=== PATIENT | male | born 1940 | race Caucasian/White ===

== ENCOUNTER → 2017-01-26 | Day surgery (SDC) | payer MEDICARE, OTHER ==
[~2017-01-26] MED LIST: Lactated Ringers 1,000 ML IV SCH; Propofol 200 MG/20 ML SDV ONE; fentaNYL 100 MCG/2 ML SDV ONE
--- NOTE | 2017-01-26 08:08 | OR ---
PREOPERATIVE DIAGNOSIS: History of polyps. POSTOPERATIVE DIAGNOSIS: Sigmoid diverticulosis, otherwise normal exam. PROCEDURE PROPOSED/PROCEDURE DONE: Total flexible colonoscopy. INDICATION: This is a 76-year-old gentleman who has a history of polyps. His last examination was 6 years ago and he comes in for a followup exam. TECHNIQUE: The patient was brought to the endoscopy suite, placed in left lateral decubitus position. He was sedated per [facility] with propofol. The flexible video colonoscope was then passed transanally and advanced to the cecum without difficulty. Examination revealed normal ascending, transverse and descending colon. The sigmoid colon revealed some mild diverticulosis and the rectum was normal. There was no evidence of any polyps or colitis or other abnormalities. The scope was then withdrawn. The patient tolerated procedure well. FINAL IMPRESSION: 1. Sigmoid diverticulosis, otherwise normal exam. 2. History of prior polyps. PLAN: Based on his age, I do not feel he needs any future colonoscopies. SCM: 01/26/2017 07:55:33 MODL: 01/26/2017 08:04:07 /[id number]
--- NOTE | 2017-01-26 08:35 | CONS ---
DATE OF CONSULTATION: CHIEF COMPLAINT: Umbilical hernia. HISTORY OF PRESENT ILLNESS: This is a 76-year-old gentleman who had a laparoscopic cholecystectomy done in April of last year, and he was told at that time that he had an umbilical hernia and it was felt that they repaired it, but he states that it soon came back after his laparoscopic gallbladder surgery and the hernia is getting larger. It is not particularly bothersome to him, but he is concerned about it growing, and he does have to lift wheelchair and move his in a wheelchair on occasion, and he is feeling that it is going to be a problem because of that. 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 He has had a laparoscopic cholecystectomy surgery. He is otherwise quite healthy for his age. PHYSICAL EXAMINATION: GENERAL: Reveals a healthy-appearing gentleman. He just had a recent physical by Kaushik Frost, please refer to that for the complete physical. ABDOMEN: I examined him in the standing position. He does have a supraumbilical hernia that mushrooms out a fair amount of tissue, but it is all reducible and the actual fascial defect is only about 1.5 cm. No evidence of any inguinal hernias. EXTREMITIES: No pedal edema. IMPRESSION: 1. Reducible supraumbilical hernia, probable trocar site hernia. 2. Blood leukemia with diminished blood counts. PLAN: I feel that we should proceed to repair this under local anesthesia with IV sedation as an outpatient surgery, and he is already scheduled for this coming Wednesday. I feel that we cannot do it under local anesthesia without a general anesthetic. He was understanding of that. He had questions about his activity after surgery and I discussed that with him. I felt he could lift the wheelchair pretty much right away and he would be able to push his . So long as he does not lift anything heavier than that, I feel that he should be fine, and then that I would follow up with him in the clinic in about a month here in [place]. Thank you for the consultation. SCM: 01/26/2017 07:58:42 MODL: 01/26/2017 08:25:21 /[id number]
== END ==
LOC: VM.SDS 06:30
PROVIDERS: ATTEND Surgery
DX: Z12.11 Encounter for screening for malignant neoplasm of colon (principal); K57.30 Diverticulosis of large intestine without perforation or abscess without bleeding; Z86.010 Personal history of colon polyps; C95.90 Leukemia, unspecified not having achieved remission; Z98.890 Other specified postprocedural states; Z79.899 Other long term (current) drug therapy
CPT/HCPCS: G0105; J2704; J3010; J7120; 00810

== ENCOUNTER 2018-06-29 17:10 | Emergency (ER) | payer MEDICARE, OTHER ==
[2018-06-29] MEDS ORDERED: Sodium Chloride 0.9% 10 ML Syringe FLUSH PRN (17:23)
[2018-06-29] MEDS ORDERED: Sodium Chloride 0.9% 1,000 ML IV SCH (17:30)
[2018-06-29] MEDS ORDERED: Iopamidol 612 MG/ML 100 ML Bottle IVPUSH ONE (17:33)
[2018-06-29] MEDS ORDERED: cefTRIAXone 2 GM Vial IVPUSH ONE (17:36)
--- NOTE | 2018-06-29 17:40 | EDM.PDOC ---
ED HPI GENERAL MEDICAL PROBLEM - General Chief Complaint: Abdominal Pain Stated Complaint: abdominal pain and crampin Time Seen by Provider: 06/29/18 17:13 Source of Information: Reports: Patient, Old Records History Limitations: Reports: No Limitations - History of Present Illness INITIAL COMMENTS - FREE TEXT/NARRATIVE: Patient presents with upper right abdominal pain that he states has been intermittent over the last couple of weeks. Over this last weekend it did significantly increase that he was seen at the [facility] on Wednesday be Steph Ferris. Check up with his [place] doctor was then scheduled for earlier today in the AM. No abnormal findings were found at that time that would explain his abdominal pain. 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 He describes the pain as self resolving and cramp like. He did have a lap cholecystectomy in 2017. Appendix is still intact. He denies nausea, vomiting, diarrhea, blood in urine or stool. No chest pain, is short of breath, but does have an asthma history. No prior VT or CVA per his report. No med list, but will review [facility] chart. He is also complaining of chills. Febrile at 103.9F on presentation. Onset: Gradual Duration: Intermittent Location: Reports: Abdomen, Generalized Quality: Reports: Ache Severity: Moderate Associated Symptoms: Reports: Cough, Fever/Chills - Related Data Allergies Allergy/AdvReac Type Severity Reaction Status Date / Time amoxicillin AdvReac Headache Verified 06/29/18 18:03 rituximab [From Rituxan] AdvReac Body Aches Verified 06/29/18 18:03 Home Meds: Home Meds Calcium Carbonate/Vitamin D3 [Calcium 600 + Vit D 200] 1 each PO BID 01/22/17 [ History] Docusate Sodium [Colace] 100 mg PO BID 01/22/17 [History] Mometasone Furoate [Nasonex] 2 sprays NASBOTH DAILY 01/22/17 [History] Montelukast [Singulair] 10 mg PO BEDTIME 01/22/17 [History] Multivitamin with Minerals [Multiple Vitamin] 1 tab PO DAILY 01/22/17 [History] Propylene Glycol/Peg 400 [Systane 0.3-0.4% Eye Drops] 1 drop EYEBOTH Q4H PRN [History] Tamsulosin [Flomax] 0.4 mg PO BEDTIME 01/22/17 [History] Past Medical History HEENT History: Reports: Allergic Rhinitis, Impaired Vision, Retinal Detachment Cardiovascular History: Reports: High Cholesterol Respiratory History: Reports: Asthma, COPD, Pneumonia, Recurrent Gastrointestinal History: Reports: Colon Polyp, GI Bleed, Inflammatory Bowel Disease, Other (See Below) Genitourinary History: Reports: Prostate Disorder Neurological History: Reports: None Psychiatric History: Reports: None Hematologic History: Immunologic History: Reports: Immunosuppression Other Immunologic History: SPLENIC LYMPHOMA Oncologic (Cancer) History: Reports: Lymphoma, Other (See Below) Other Oncologic History: SPLEEN LYMPHOMA Dermatologic History: Reports: None - Past Surgical History HEENT Surgical History: Reports: Cataract Surgery Respiratory Surgical History: Reports: None GI Surgical History: Reports: Cholecystectomy, Colonoscopy, Other (See Below) Other GI Surgeries/Procedures: COMMON BILE DUCT OBSTRUCTION Musculoskeletal Surgical History: Reports: Joint Replacement Other Musculoskeletal Surgeries/Procedures:: LEFT KNEE ED ROS GENERAL - Review of Systems Review Of Systems: See Below Constitutional: Reports: Fever, Chills, Other (shaking) HEENT: Reports: No Symptoms Respiratory: Reports: Shortness of Breath, Cough Cardiovascular: Reports: No Symptoms Endocrine: Reports: No Symptoms GI/Abdominal: Reports: Abdominal Pain. Denies: Black Stool, Bloody Stool, Diarrhea, Nausea, Vomiting : Reports: No Symptoms. Denies: Hematuria Musculoskeletal: Reports: No Symptoms Skin: Reports: No Symptoms Neurological: Reports: No Symptoms Psychiatric: Reports: No Symptoms Hematologic/Lymphatic: Reports: No Symptoms Immunologic: Reports: No Symptoms ED EXAM, GENERAL - Physical Exam Exam: See Below Exam Limited By: No Limitations General Appearance: Alert, WD/WN, Mild Distress Eye Exam: Bilateral Eye: EOMI, Normal Inspection, PERRL Ears: Normal TMs Nose: Normal Inspection, Normal Mucosa, No Blood Throat/Mouth: Normal Inspection, Normal Lips, Normal Teeth, Normal Gums, Normal Oropharynx, Normal Voice, No Airway Compromise Head: Atraumatic, Normocephalic Neck: Normal Inspection, Supple, Non-Tender, Full Range of Motion Respiratory/Chest: No Respiratory Distress, Lungs Clear, Normal Breath Sounds, No Accessory Muscle Use, Chest Non-Tender Cardiovascular: Normal Peripheral Pulses, Regular Rate, Rhythm, No Edema, No Gallop, No JVD, No Murmur, No Rub Peripheral Pulses: 2+: Posterior Tibial (L), Posterior Tibial (R), Dorsalis Pedis (L), Dorsalis Pedis (R) GI/Abdominal: Normal Bowel Sounds, Soft, No Organomegaly, No Distention, No Abnormal Bruit, No Mass, Tender (right upper quad) Back Exam: Normal Inspection, Full Range of Motion, NT Extremities: Normal Inspection, Normal Range of Motion, Non-Tender, Normal Capillary Refill, No Pedal Edema Neurological: Alert, Oriented, CN II-XII Intact, Normal Cognition, Normal Gait, Normal Reflexes, No Motor/Sensory Deficits Psychiatric: Normal Affect, Normal Mood Skin Exam: Warm, Dry, Intact, Normal Color, No Rash Lymphatic: No Adenopathy EKG INTERPRETATION EKG Date: 06/29/18 Time: 17:42 Rhythm: NSR Rate (Beats/Min): 95 [place]: Normal P-Wave: Present QRS: Normal ST-T: Normal QT: Normal Course - Orders/Labs/Meds Orders: Active Orders 24 hr Category Date Time Status EKG Documentation Completion [RC] STAT Care 06/29/18 17:23 Ordered Abdomen Pelvis w Cont [CT] Stat Exams 06/29/18 17:23 Ordered CBC WITH AUTO DIFF [HEME] Stat Lab 06/29/18 17:23 Ordered COMPREHENSIVE METABOLIC PN,CMP [CHEM] Stat Lab 06/29/18 17:23 Ordered CREATINE KINASE,CK [CHEM] Stat Lab 06/29/18 17:23 Ordered CULTURE BLOOD [BC] Stat Lab 06/29/18 17:24 Ordered CULTURE BLOOD [BC] Stat Lab 06/29/18 17:24 Ordered CULTURE URINE [RM] Stat Lab 06/29/18 17:23 Ordered INFLUENZA A+B AG SCREEN [RM] Stat Lab 06/29/18 17:23 Ordered LACTIC ACID [CHEM] Stat Lab 06/29/18 17:23 Ordered MAGNESIUM [CHEM] Stat Lab 06/29/18 17:23 Ordered PHOSPHORUS [CHEM] Stat Lab 06/29/18 17:23 Ordered PRO B-TYPE NATRIUR PEPT,BNPPRO [CHEM] Stat Lab 06/29/18 17:24 Ordered TROPONIN I [CHEM] Stat Lab 06/29/18 17:23 Ordered UA W/MICROSCOPIC [URIN] Stat Lab 06/29/18 17:23 Ordered Sodium Chloride 0.9% [Normal Saline] 1,000 ml Med 06/29/18 17:30 Ordered IV ASDIRECTED Sodium Chloride 0.9% [Saline Flush] Med 06/29/18 17:23 Ordered 10 ml FLUSH ASDIRECTED PRN Blood Culture x2 Reflex Set [OM.PC] Stat Oth 06/29/18 17:23 Ordered Saline Lock Insert [OM.PC] Routine Oth 06/29/18 17:23 Ordered Medication Orders Sodium Chloride (Normal Saline) 1,000 mls @ 999 mls/hr IV ASDIRECTED STEVEN Sodium Chloride (Saline Flush) 10 ml FLUSH ASDIRECTED PRN PRN Reason: Keep Vein Open Meds: Medications Generic Name Dose Route Start Last Admin Trade Name Freq PRN Reason Stop Dose Admin Sodium Chloride 1,000 mls @ 999 mls/hr 06/29/18 17:30 Normal Saline IV ASDIRECTED STEVEN Sodium Chloride 10 ml 06/29/18 17:23 Saline Flush FLUSH ASDIRECTED PRN Keep Vein Open - Radiology Interpretation Free Text/Narrative:: CT chest abdomen pelvis performed. CT negative for acute processes - Re-Assessments/Exams Free Text/Narrative Re-Assessment/Exam: 06/29/18 19:55 After exam and review of diagnostics, patient said he forgot to tell me that he has an abscessed tooth to upper left side. I did not see any enlargement on my evaluation. Will prescribe Clindamycin. States he has a dental appointment next week for a root canal. Departure - Departure Time of Disposition: 19:56 Disposition: Home, Self-Care 01 Condition: Good Clinical Impression: Gastroenteritis, Tooth abscess - Discharge Information *PRESCRIPTION DRUG MONITORING PROGRAM REVIEWED*: Not Applicable *COPY OF PRESCRIPTION DRUG MONITORING REPORT IN PATIENT ALEXANDER: Not Applicable Instructions: Dental Abscess, [id number], Viral Gastroenteritis, Adult, Easy- to-Read, Clindamycin capsules, Probiotics Forms: ED Department Discharge Additional Instructions: Plan 1. Stay well hydrated 2. Take the flexeril every 8 hours for any muscle cramps you may experience in the abdomen 3. Your chest/abdomen/pelvis CT was negative for any acute causes for abdominal pain 4. Take 300 mg of Clindamycin every 8 hours for 7 days 5. Eat 1-2 yogurts daily for the next month to help prevent a gut infection caused by the use of antibiotics, you may also try probiotics 6. Follow up as needed in [place] or with your PCP here in [place]. If your abdominal cramping does not improve, contact your primary to look at getting a referral to see gastroenterology(GI) 7. Please call us if you have any questions or concerns related to this visit 8. I did send the images of your CT scans to the [facility] radiology system so they should be available for them to review - Problem List & Annotations (1) Gastroenteritis SNOMED Code(s): 16463934 Code(s): K52.9 - NONINFECTIVE GASTROENTERITIS AND COLITIS, UNSPECIFIED Status: Acute Priority: Low Current Visit: Yes (2) Tooth abscess SNOMED Code(s): 829986301 Code(s): K04.7 - PERIAPICAL ABSCESS WITHOUT SINUS Status: Acute Priority : Medium Current Visit: Yes - Problem List Review Problem List Initiated/Reviewed/Updated: Yes - My Orders Last 24 Hours: My Active Orders 06/29/18 17:23 EKG Documentation Completion [RC] STAT Abdomen Pelvis w Cont [CT] Stat CBC WITH AUTO DIFF [HEME] Stat COMPREHENSIVE METABOLIC PN,CMP [CHEM] Stat CREATINE KINASE,CK [CHEM] Stat CULTURE URINE [RM] Stat INFLUENZA A+B AG SCREEN [RM] Stat LACTIC ACID [CHEM] Stat MAGNESIUM [CHEM] Stat PHOSPHORUS [CHEM] Stat TROPONIN I [CHEM] Stat UA W/MICROSCOPIC [URIN] Stat Sodium Chloride 0.9% [Saline Flush] 10 ml FLUSH ASDIRECTED PRN Blood Culture x2 Reflex Set [OM.PC] Stat Saline Lock Insert [OM.PC] Routine 06/29/18 17:24 CULTURE BLOOD [BC] Stat CULTURE BLOOD [BC] Stat PRO B-TYPE NATRIUR PEPT,BNPPRO [CHEM] Stat 06/29/18 17:30 Sodium Chloride 0.9% [Normal Saline] 1,000 ml IV ASDIRECTED - Assessment/Plan Last 24 Hours: My Active Orders 06/29/18 17:23 EKG Documentation Completion [RC] STAT Abdomen Pelvis w Cont [CT] Stat CBC WITH AUTO DIFF [HEME] Stat COMPREHENSIVE METABOLIC PN,CMP [CHEM] Stat CREATINE KINASE,CK [CHEM] Stat CULTURE URINE [RM] Stat INFLUENZA A+B AG SCREEN [RM] Stat LACTIC ACID [CHEM] Stat MAGNESIUM [CHEM] Stat PHOSPHORUS [CHEM] Stat TROPONIN I [CHEM] Stat UA W/MICROSCOPIC [URIN] Stat Sodium Chloride 0.9% [Saline Flush] 10 ml FLUSH ASDIRECTED PRN Blood Culture x2 Reflex Set [OM.PC] Stat Saline Lock Insert [OM.PC] Routine 06/29/18 17:24 CULTURE BLOOD [BC] Stat CULTURE BLOOD [BC] Stat PRO B-TYPE NATRIUR PEPT,BNPPRO [CHEM] Stat 06/29/18 17:30 Sodium Chloride 0.9% [Normal Saline] 1,000 ml IV ASDIRECTED Assessment:: tooth abscess viral gastroenteritis Plan: Plan 1. Stay well hydrated 2. Take the flexeril every 8 hours for any muscle cramps you may experience in the abdomen 3. Your chest/abdomen/pelvis CT was negative for any acute causes for abdominal pain 4. Take 300 mg of Clindamycin every 8 hours for 7 days 5. Eat 1-2 yogurts daily for the next month to help prevent a gut infection caused by the use of antibiotics, you may also try probiotics 6. Follow up as needed in [place] or with your PCP here in [place]. If your abdominal cramping does not improve, contact your primary to look at getting a referral to see gastroenterology(GI) 7. Please call us if you have any questions or concerns related to this visit 8. I did send the images of your CT scans to the [facility] radiology system so they should be available for them to review
[2018-06-29] MEDS ORDERED: Acetaminophen 500 MG Tab PO ONE (17:45)
[2018-06-29 18:16] LABS: CHLORIDE,CL 105 mmol/L (98-107); SODIUM,NA 143 mmol/L (136-145)
--- NOTE | 2018-06-29 19:16 | CT ---
[id number] CT/CT Chest Abdomen Pelvis W IV EXAM: CHEST ABDOMEN AND PELVIS CT WITH CONTRAST INDICATION: Abdominal pain, fever and cough. COMPARISON: None. DISCUSSION: The lungs are clear. No pleural or pericardial effusion. Normal heart size. No mediastinal, axillary or hilar adenopathy. Respiratory motion somewhat limits evaluation of the upper abdomen. Mild pneumobilia could be from prior biliary intervention, correlate with history. Cholecystectomy. Mild to moderate splenomegaly. There are couple of simple appearing left renal cysts the largest measuring about 7.5 cm in greatest diameter. There are scattered colonic diverticula without evidence of diverticulitis. Small fat-containing bilateral inguinal hernias. A subcentimeter hypodensity in the right lobe of the liver (image 115 series 2) is too small to further characterize, but of doubtful clinical significance. The pancreas, adrenal glands, right kidney, and small bowel are normal in appearance. The appendix is not seen with certainty, but there are no secondary findings to suggest acute appendicitis. Degenerative changes throughout the spine with mild chronic appearing L2, T8, T5 and T4 compression fractures. IMPRESSION: 1. No definite explanation for pain, fever and cough. Diego Vasquez MD 06/29/18 [id number] Thank you for allowing us to participate in the care of your patient.
[2018-06-29] MEDS ORDERED: Pantoprazole 40 MG Vial IVPUSH ONE (19:32)
[2018-06-29] MEDS ORDERED: Take Home: Cyclobenzaprine 10 MG Tab, 4 Tab Pack PO ONE (19:32)
[2018-06-29] MEDS ORDERED: Cyclobenzaprine 10 MG Tab PO ONE (19:32)
[2018-06-29] MEDS ORDERED: Take Home: Clindamycin HCl 150 MG Cap, 6 Cap Pack PO ONE (19:33)
== END 2018-06-29 20:15 | disposition home or self-care (01) ==
LOC: VM.ED 17:10
DX: A08.4 Viral intestinal infection, unspecified (principal); K04.7 Periapical abscess without sinus; J44.9 Chronic obstructive pulmonary disease, unspecified; E78.00 Pure hypercholesterolemia, unspecified; Z79.899 Other long term (current) drug therapy; Z88.1 Allergy status to other antibiotic agents; R06.02 Shortness of breath
CPT/HCPCS: 36415; 71260; 74177; 80053; 81001; 82150; 82550; 83605; 83690; 83735; 83880; 84100; 84443; 84484; 85025; 86140; 87040; 87086; 87804; 93005; 93010; 96361; 96374; 96375; 99284; A9270; C9113; J0696; J7030; Q9967

== ENCOUNTER 2018-09-12 09:56 | Day surgery (SDC) | payer MEDICARE, OTHER ==
[~2018-09-12 09:56] MED LIST changes: +Lidocaine 4% 5 ML Amp ONE; -Propofol 200 MG/20 ML SDV ONE; +Sodium Chloride 0.9% 10 ML Syringe FLUSH PRN; -fentaNYL 100 MCG/2 ML SDV ONE
[2018-09-12] MEDS ORDERED: Propofol 200 MG/20 ML SDV ONE (11:54)
[2018-09-12] MEDS ORDERED: fentaNYL 100 MCG/2 ML SDV ONE (11:54)
--- NOTE | 2018-09-12 13:20 | OR ---
PREOPERATIVE DIAGNOSIS: Epigastric pain. POSTOPERATIVE DIAGNOSES: 1. Grade 2 gastroesophageal reflux disease without hiatal hernia. 2. Antritis without ulceration. PROCEDURE PROPOSED AND PROCEDURE DONE: Upper gastrointestinal panendoscopy with antral biopsies. INDICATION: This is an 78-year-old gentleman bothered with some epigastric pain of undetermined etiology and it was felt that he should be gastroscoped to rule out any worrisome findings. DESCRIPTION OF PROCEDURE: The patient was brought to the endoscopy suite and placed in left lateral decubitus position. He was sedated per [facility] with propofol. The flexible video gastroscope was then passed transorally and under visualization advanced well into the duodenum. The duodenum and duodenal bulb were unremarkable. The antrum revealed some mild inflammation compatible with an antritis and a couple of antral biopsies were taken to rule out H. pylori. The body of the stomach otherwise looked quite normal and healthy, but the GE junction did reveal some grade 1 to 2 GERD with some tiny ulcerations in the very distal esophagus. There were no signs of any Schatzki's ring or stenosis and no signs of any hiatal hernia. The remainder of the esophagus was normal. The scope was then withdrawn. He tolerated the procedure well. FINAL IMPRESSION: 1. Grade 2 gastroesophageal reflux disease without hiatal hernia. 2. Mild antritis. PLAN: He will be placed on Protonix 40 mg daily for 2 months. He needs to cut back on his caffeine consumption. He does drink a lot of ice tea. He was told that he can go off the medicine after 2 months and if he has flare up of symptoms, he may have to go back on the medicine for a month at a time. He can follow up with his PCP, if he has any further issues or questions. SCM: 09/12/2018 12:27:21 MODL: 09/12/2018 13:11:56 /[id number]
== END 2018-09-12 12:50 | disposition home or self-care (01) ==
LOC: VM.SDS 09:56
PROVIDERS: ATTEND Surgery
DX: K21.9 Gastro-esophageal reflux disease without esophagitis (principal); K29.60 Other gastritis without bleeding; J44.9 Chronic obstructive pulmonary disease, unspecified; G47.33 Obstructive sleep apnea (adult) (pediatric); E78.5 Hyperlipidemia, unspecified; E66.9 Obesity, unspecified; Z68.29 Body mass index [BMI] 29.0-29.9, adult; Z88.0 Allergy status to penicillin; Z88.8 Allergy status to other drugs, medicaments and biological substances; Z99.89 Dependence on other enabling machines and devices
CPT/HCPCS: 00731; 43239; J2704; J3010; J7120

== ENCOUNTER 2023-03-19 10:12 | Day surgery (SDC) | payer MEDICARE, OTHER ==
[2023-03-19] MEDS: Lactated Ringers 1,000 ML IV SCH (10:47)
[2023-03-19] MEDS ORDERED: Midazolam 1 MG/ML 2 ML SDV ONE (11:24)
[2023-03-19] MEDS ORDERED: fentaNYL 100 MCG/2 ML SDV ONE (11:24)
[2023-03-19] MEDS ORDERED: Propofol 200 MG/20 ML SDV ONE (11:24)
[2023-03-19] MEDS ORDERED: Lidocaine 4% 5 ML Amp ONE (11:46)
[2023-05-06] MEDS ORDERED: Lactated Ringers 1,000 ML IV SCH (07:00)
== END 2023-03-19 13:30 | disposition home or self-care (01) ==
LOC: VM.SDS 10:12
PROVIDERS: ATTEND Student in an Organized Health Care Education/Training Program
DX: K22.9 Disease of esophagus, unspecified (principal); R05.3 Chronic cough; E78.5 Hyperlipidemia, unspecified; L82.1 Other seborrheic keratosis; G47.30 Sleep apnea, unspecified; Z79.899 Other long term (current) drug therapy; Z79.51 Long term (current) use of inhaled steroids; Z88.0 Allergy status to penicillin; Z88.2 Allergy status to sulfonamides
CPT/HCPCS: 00731; J2250; J2704; J3010; J3490; J7120

== ENCOUNTER 2024-02-27 13:02 | Emergency (ER) | payer MEDICARE, OTHER ==
[2024-02-27] MEDS ORDERED: Sodium Chloride 0.9% 10 ML Syringe FLUSH PRN (13:13)
[2024-02-27 13:41] LABS: BASOPHILS PERCENT AUTO 0.6 % (0.2-1.2); EOSINOPHILS PERCENT AUTO 0.5 % (0.0-4.0); HEMATOCRIT 42.4 % (40.0-52.0); HEMOGLOBIN 14.2 g/dL (14.0-18.0); IMMATURE GRAN ABSOLUTE AUTO 0.01 x10^3/uL (0.00-0.07); LYMPHOCYTES ABSOLUTE AUTO 1.4 x10^3/uL (1.0-4.8); LYMPHOCYTES PERCENT AUTO 22.7 % (25.0-50.0); MEAN CORPUSCULAR HEMOGLOBIN 30.5 pg (26.0-32.0); MEAN CORPUSCULAR HGB CONC 33.5 g/dL (32.0-36.0); MONOCYTES ABSOLUTE AUTO 0.5 x10^3/uL (0.0-0.8); MONOCYTES PERCENT AUTO 7.7 % (2.0-11.0); NEUTROPHILS ABSOLUTE AUTO 4.2 x10^3/uL (1.8-7.7); NEUTROPHILS PERCENT AUTO 68.3 % (50.0-80.0); PLATELET COUNT,PLT 125 x10^3/uL (130-400); RED BLOOD CELL COUNT 4.66 x10^6/uL (4.5-6.0); WHITE BLOOD CELL COUNT,WBC 6.2 x10^3/uL (4.0-10.0)
[2024-02-27 14:01] LABS: A/G RATIO 1.12; ALBUMIN 3.8 g/dL (3.4-5.0); ANION GAP 12.7 mmol/L (5-15); BILIRUBIN TOTAL 0.6 mg/dL (0.2-1.0); CALCIUM 9.7 mg/dL (8.5-10.1); CREATININE 1.3 mg/dL (0.70-1.30); EST CRCL DRUG DOSING (CG) 40.19 mL/min; POTASSIUM,K 3.7 mmol/L (3.5-5.1); PROTEIN TOTAL,TP 7.2 g/dL (6.4-8.2)
[2024-02-27 14:11] LABS: APPEARANCE,URINE CLEAR (CLEAR); BILIRUBIN,URINE NEGATIVE (NEGATIVE); COLOR,URINE YELLOW (YELLOW); GLUCOSE,URINE NEGATIVE (NEGATIVE); KETONES,URINE 15 mg/dL (NEGATIVE); LEUKOCYTE ESTERASE,URINE NEGATIVE (NEGATIVE); NITRITE,URINE NEGATIVE (NEGATIVE); OCCULT BLOOD,URINE NEGATIVE (NEGATIVE); PROTEIN,URINE NEGATIVE (NEGATIVE); UROBILINOGEN,URINE 0.2 EU/dL (0.2)
[2024-02-27] MEDS: Ondansetron 4 MG/2 ML SDV IVPUSH ONE (14:22)
[2024-02-27] MEDS: Iopamidol 612 MG/ML 100 ML Bottle IVPUSH ONE (14:39)
[2024-02-27] MEDS: Take Home: Ondansetron 4 MG Tab.DIS, 5 Tab Pack PO ONE (15:29)
== END 2024-02-27 15:32 | disposition home or self-care (01) ==
LOC: VM.ED 13:02
DX: R10.13 Epigastric pain (principal); E78.00 Pure hypercholesterolemia, unspecified; Z88.0 Allergy status to penicillin; Z88.2 Allergy status to sulfonamides; Z88.8 Allergy status to other drugs, medicaments and biological substances; Z79.899 Other long term (current) drug therapy; Z90.49 Acquired absence of other specified parts of digestive tract
CPT/HCPCS: 36415; 74177; 80053; 81003; 83690; 84484; 85025; 93005; 93010; 96374; 99284; 99284-25; J2405; Q0162; Q9967